=== PATIENT | female | born 1950 | race Caucasian/White ===

== ENCOUNTER → 2016-11-12 | Day surgery (SDC) | payer MEDICARE, OTHER ==
[~2016-11-12] MED LIST: ATOR40TA59 PO; HYDR-2666 PO; HYDROmorphone 2 MG/ML VIAL IV PRN; IV RINGERS,LACTATED 1000ML 1,000 ML IV SCH; LIDOCAINE 1% 1 ML SYRINGE. ID PRN; LIDOCAINE 2% PF Vial for OR 5 ML VIAL. ONE; MELO-150 PO; MORPHINE SULFATE 2 MG/ML DISP.SYRIN. IV PRN; ONDANSETRON PF 4 MG/2 ML VIAL. IV PRN; PROCHLORPERAZINE 10 MG/2 ML VIAL. IV PRN; PROPOFOL 20 ML IV ONE; SITA1TAB11 PO; TELM1TAB3 PO; TELM40TA PO; fentaNYL PF VIAL 100 MCG/2 ML VIAL IV PRN
[2016-11-12 12:32] VITALS: BP 147/80
== END | disposition home or self-care (01) ==
LOC: ENDOS 10:41
PROVIDERS: ATTEND Internal Medicine Gastroenterology
DX: K22.2 Esophageal obstruction (principal); K29.50 Unspecified chronic gastritis without bleeding; E78.00 Pure hypercholesterolemia, unspecified; I10 Essential (primary) hypertension; E11.9 Type 2 diabetes mellitus without complications; F41.9 Anxiety disorder, unspecified; F32.9 Major depressive disorder, single episode, unspecified; Z90.710 Acquired absence of both cervix and uterus
CPT/HCPCS: 43235; 43450; J2704

== ENCOUNTER → 2016-12-03 | Outpatient (CLI) | payer MEDICARE, OTHER ==
[2016-11-12 12:32] VITALS: BP 147/80
[~2016-12-03] MED LIST changes: +BARIUM SULFATE 340 GM SUSPENSION. PO ONE; +BARIUM SULFATE 60% 355 ML SUSP PO ONE; -HYDROmorphone 2 MG/ML VIAL IV PRN; -IV RINGERS,LACTATED 1000ML 1,000 ML IV SCH; -LIDOCAINE 1% 1 ML SYRINGE. ID PRN; -LIDOCAINE 2% PF Vial for OR 5 ML VIAL. ONE; -MORPHINE SULFATE 2 MG/ML DISP.SYRIN. IV PRN; -ONDANSETRON PF 4 MG/2 ML VIAL. IV PRN; -PROCHLORPERAZINE 10 MG/2 ML VIAL. IV PRN; -PROPOFOL 20 ML IV ONE; +SIMETHICONE/SOD BICARB/CITRIC ACID PACKET. PO ONE; -fentaNYL PF VIAL 100 MCG/2 ML VIAL IV PRN
--- NOTE | 2016-12-03 09:47 | RAD ---
Esophagram History: LAP-BAND, dysphagia, feels as if food is getting stuck. Upper endoscopy performed on 3 weeks ago demonstrated mild Schatzki's ring and esophagus was dilated. Comparison: None. Technique: 1 Ostomy Rn radiograph was obtained. 15 fluoroscopic images were obtained. Total fluoroscopic time was 1.6 minutes. Findings: Ostomy Rn film demonstrates presence of a lap band with appropriate orientation. The phi angle is 45 degrees. LAP-BAND tubing appears intact. Initially, small amount of thin barium contrast was administered to the patient. There is appropriate esophageal motility. Contrast material transits easily through the lap band device. The diameter of lumen of LAP-BAND device is estimated at 6 mm. There is no evidence of gastric pouch dilatation. Double contrast esophagram was then performed. Mucosal pattern of the esophagus appears appropriate. No inflammatory changes, polyps, or strictures are identified. Single contrast esophagram was then performed. Esophageal motility is appropriate. No esophageal strictures are identified. Impression: 1. The lap band device is present and has appropriate orientation. 2. Diameter of lumen of the lap band band device is estimated at 6 mm. 3. No esophageal mucosal abnormality is identified.
== END | disposition home or self-care (01) ==
LOC: RAD 08:44
PROVIDERS: ATTEND Internal Medicine Gastroenterology
DX: R13.10 Dysphagia, unspecified (principal)
CPT/HCPCS: 74220

== ENCOUNTER 2017-06-17 09:00 | Emergency (ER) | payer MEDICARE, OTHER ==
[~2017-06-17] VITALS: Ht 157.5 cm; Wt 74.4 kg
[~2017-06-17 09:00] MED LIST changes: -BARIUM SULFATE 340 GM SUSPENSION. PO ONE; -BARIUM SULFATE 60% 355 ML SUSP PO ONE; -HYDR-2666 PO; +HYDR-2758 PO; -MELO-150 PO; +MELO15TA23 PO; -SIMETHICONE/SOD BICARB/CITRIC ACID PACKET. PO ONE
--- NOTE | 2017-06-17 09:25 | PHYS DOC ---
Past Medical History Past Medical History: Diabetes-Type II, High Cholesterol, Hypertension Past Surgical History: Hysterectomy Additional Past Surgical Histo: BLADDER SLING, CYST REMOVAL Alcohol Use: None Drug Use: None Adult General Chief Complaint Chief Complaint: FOOT INJURY PAIN [facility] HPI Patient is a 67 year old female who presents with pain to the left ankle after she was attacked by her rooster last night. She states she was walking to the hen [place] when he attacked and spurred her causing the injury. She has pain to her lateral malleolus with swelling. She states that it hurts to put any weight on that ankle. Review of Systems Review of Systems Constitutional: Denies fever or chills [] Respiratory: Denies cough or shortness of breath [] Cardiovascular: No additional information not addressed in HPI [] Musculoskeletal: See history of present illness Integument: Patient has numerous tiny scratches to bilateral hands and feet that she states are from kittens Neurologic: Denies headache, focal weakness or sensory changes [] Endocrine: Denies polyuria or polydipsia [] All other systems were reviewed and found to be within normal limits, except as documented in this note. Allergies Allergies Allergies Coded Allergies Type Severity Reaction Last Updated Verified No Known Drug Allergies 11/12/16 No Physical Exam Physical Exam Constitutional: Well developed, well nourished, no acute distress, non-toxic appearance. [] Cardiovascular:Heart rate regular rhythm, no murmur [] Lungs & Thorax: Bilateral breath sounds clear to auscultation [] Skin: Warm, dry, no erythema, multiple small scratches to bilateral hands and feet that look to be healing with no evidence of infection[] Back: No tenderness, no CVA tenderness. [] Extremities: tenderness over lateral malleolus, no cyanosis, no clubbing, ROM intact, mild edema, pulses and sensation are intact [] Neurologic: Alert and oriented X 3, normal motor function, normal sensory function, no focal deficits noted. [] Psychologic: Affect normal, judgement normal, mood normal. [] Current Patient Data Vital Signs Vital Signs Date Time Temp Pulse Resp B/P (MAP) Pulse Ox O2 Delivery O2 Flow Rate FiO2 06/17/17 10:20 72 16 124/67 (86) 98 06/17/17 09:06 98.7 Room Air 98.7 EKG EKG [] Radiology/Procedures Radiology/Procedures [] PATIENT: DORI SHINE ACCOUNT: [id number] : 1950 LOCATION: ER AGE: 67 SEX: F EXAM STATUS: REG ER ORD. PHYSICIAN: MARK SANTOS APRN REASON: injured by rooster last night, hurts to bear weight PROCEDURE: ANKLE LEFT 3V Left ankle, 3 views, 06/17/2017: History: Pain, attacked by a rooster There is mild patchy bony demineralization. No fracture or dislocation is identified. There is mild subcutaneous edema. IMPRESSION: No acute bony abnormality is detected. DICTATED and SIGNED BY: DANA MOHAN MD DATE: 06/17/17 0944 CC: FRANCINE MILLER DO; MARK SANTOS APRN ~ Course & Med Decision Making Course & Med Decision Making Pertinent Labs and Imaging studies reviewed. (See chart for details) []1. Ankle contusion Placed in an hill wrap. RICE the extremity for comfort and relief of swelling and pain. May take ibuprofen or Tylenol for pain. Please follow-up with your primary care provider in 3 days if not improving or return to the ED if worsening. Dragon Disclaimer Dragon Disclaimer This electronic medical record was generated, in whole or in part, using a voice recognition dictation system. Departure Departure Referrals: FRANCINE MILLER DO (PCP) MARK SANTOS APRN Jun 17, 2017 09:25
--- NOTE | 2017-06-17 09:48 | RAD ---
Left ankle, 3 views, 06/17/2017: History: Pain, attacked by a rooster There is mild patchy bony demineralization. No fracture or dislocation is identified. There is mild subcutaneous edema. IMPRESSION: No acute bony abnormality is detected.
[2017-06-17 10:20] VITALS: BP 124/67
== END 2017-06-17 10:20 | disposition home or self-care (01) ==
LOC: ER 09:00
DX: S90.02XA Contusion of left ankle, initial encounter (principal); E11.9 Type 2 diabetes mellitus without complications; E78.00 Pure hypercholesterolemia, unspecified; I10 Essential (primary) hypertension; Z90.710 Acquired absence of both cervix and uterus; X58.XXXA Exposure to other specified factors, initial encounter; Y93.01 Activity, walking, marching and hiking; Y92.89 Other specified places as the place of occurrence of the external cause; Y99.8 Other external cause status
CPT/HCPCS: 73610; 99284

== ENCOUNTER → 2017-08-09 | Outpatient (CLI) | payer MEDICARE, OTHER ==
[2017-08-09] MEDS: GADOBUTROL 7.5 MMOL/7.5 ML VIAL IV ×2 (14:32)
== END | disposition home or self-care (01) ==
LOC: KCIC MRI 13:25
DX: H91.90 Unspecified hearing loss, unspecified ear (principal); R42 Dizziness and giddiness
CPT/HCPCS: 70553; A9585

== ENCOUNTER → 2018-11-25 | Day surgery (SDC) | payer MEDICARE, OTHER ==
[~2018-11-25] MED LIST changes: +AMLO5TAB10 PO; +EXEN2VIA SQ; -HYDR-2758 PO; +HYDR-2761 PO; +IV RINGERS,LACTATED 1000ML 1,000 ML IV SCH; +METF500T16 PO; +PROPOFOL 40 ML IV ONE
[2018-11-25 11:02] VITALS: BP 106/56
--- NOTE | 2018-11-25 14:24 | HP ---
ADMIT DATE: 11/25/2018 REFERRING PHYSICIAN: Dr. Osbaldo Hoffman. REASON: Rectal bleeding. HISTORY OF PRESENT ILLNESS: A 68-year-old female whose past medical history is significant for diabetes, GERD, hypertension, hyperlipidemia, as well as colonic polyps, was seen with intermittent rectal bleeding, bright red in nature and blood filling the toilet, it has been intermittent in nature. FOBT was positive as well. Last colonoscopy was over 9 years ago, polyps at that time. With recurrent symptoms and history of polyps, she requests additional evaluation. PAST MEDICAL HISTORY: Anxiety, diabetes, GERD, hypertension, hyperlipidemia, history of polyps, arthritis. ALLERGIES: None. MEDICATIONS: Include amlodipine, atorvastatin, Bydureon, meloxicam, metformin, and Micardis. FAMILY AND SOCIAL HISTORY: She is adopted. She is a social drinker and nonsmoker. PAST SURGICAL HISTORY: Status post hysterectomy, dermoid cysts, weight loss surgery and tonsillectomy. REVIEW OF SYSTEMS: Per records. PHYSICAL EXAMINATION: GENERAL: Reveals a well-nourished, well-developed female who is alert, cooperative, in no acute distress. VITAL SIGNS: Temperature is 97.8, pulse is 67, respirations 18. HEENT: Reveals normocephalic, atraumatic head. Pupils and extraocular muscles are not tested. Sclerae anicteric. NECK: Supple. LUNGS: Clear. CARDIOVASCULAR: Reveals an S1, S2 without S3, S4 or appreciable murmur. ABDOMEN: Reveals soft abdomen, normal bowel sounds without appreciable hepatosplenomegaly. EXTREMITIES: Reveals no cyanosis, clubbing, edema. IMPRESSION: Colorectal screening, with rectal bleeding and a history of polyps, is warranted at this time. Risks and benefits of the procedure have been discussed with the patient who is willing to proceed at this time. JOSSUE LION MD DR: NIKKY/rusty JOB#: [id number] / [id number]
--- NOTE | 2018-11-29 17:06 | PATHOLOGY ---
[facility] Accession Number: [id number] . 01 Material submitted: . colon - SIGMOID POLYP. Modifiers: sigmoid . 01 Clinical history: . Pre-OP DX: Rectal bleed Post-OP DX: Polyp . 02 Diagnosis: Colon biopsy, sigmoid polyp: - Tubular adenoma. . (JPM:mm; 11/29/2018) [facility]/11/29/2018 . 02 Comment: There is no high grade dysplasia or evidence of malignancy. . (JPM:mm; 11/29/2018) . 02 Electronically signed: . Wilman Azul MD, Pathologist NPI- [id number] . 01 Gross description: . Received in formalin labeled "Carmen Patel, sigmoid polyp," is a single segment of aguayo soft tissue measuring 0.4 cm in maximum dimension. The specimen is entirely submitted in cassette A1. (TSD; 11/25/2018) TOB/TOB . 02 Pathologist provided ICD-10: D12.5 . 02 CPT . 834361 Specimen Comment: A courtesy copy of this report has been sent to Specimen Comment: [phone], . Specimen Comment: Report sent to DR MILLER / DR LION Performed at: 01 [facility] [address], [place], [place] [id number] MD Isac Turner MD Phone: [phone] Performed at: 02 [facility] [address] [place], [place] [id number] MD Wilman Azul MD Phone: [phone]
== END ==
LOC: SURG 08:50
PROVIDERS: ATTEND Internal Medicine Gastroenterology
DX: D12.4 Benign neoplasm of descending colon (principal); K64.0 First degree hemorrhoids; E11.9 Type 2 diabetes mellitus without complications; I10 Essential (primary) hypertension; K21.9 Gastro-esophageal reflux disease without esophagitis; E78.5 Hyperlipidemia, unspecified; F41.9 Anxiety disorder, unspecified; Z86.010 Personal history of colon polyps; Z87.39 Personal history of other diseases of the musculoskeletal system and connective tissue; Z90.710 Acquired absence of both cervix and uterus; Z98.890 Other specified postprocedural states; Z79.84 Long term (current) use of oral hypoglycemic drugs
CPT/HCPCS: 45380; 88305; J2704

== ENCOUNTER → 2019-01-10 | Outpatient (CLI) | payer MEDICARE, OTHER ==
[2018-11-25 11:02] VITALS: BP 106/56
[~2019-01-10] MED LIST changes: +AMLO5TAB4 PO; +ATOR40TA PO; +DOCU100C28 PO; -IV RINGERS,LACTATED 1000ML 1,000 ML IV SCH; -PROPOFOL 40 ML IV ONE
--- NOTE | 2019-01-10 21:09 | PAIN ---
DATE OF SERVICE: 01/10/2019 INITIAL CONSULTATION FOR PAIN CLINIC CHIEF COMPLAINT: Low back and left lower extremity pain. HISTORY OF PRESENT ILLNESS: This is a 68-year-old female who presents with history of pain for about 6 months, increasing after she had an injury to her right Achilles tendon. She was wearing a large boot, which was heavy during that time, then developed some significant back pain and radicular pain in the left lower extremity. The patient reports it is in the posterior gluteus, posterior thigh, lateral thigh, lateral anterior thigh and anterior medial thigh to the level of the ankle. She is doing much better since she got the boot off of her foot about 3-4 weeks ago and she is doing some chiropractic treatment as well as some physical therapy, which is helping fairly significantly. The patient reports it is about 50% better since the boot came off of her foot with her back and left leg. The patient reports she tried Neurontin, but it was intolerable with side effects, otherwise has had no other medication managements at this time. Again, chiropractic has helped to a point, but still pain in the left lower extremity as described. The patient describes it as radiating, cramping and aching in the back as well. The patient rates her disability rate from 0-10, 10 being the worst, is an 8 with family and home responsibilities, recreation and social activities, 7 with occupation and self-care and 5 with life support activities. The patient reports it awakens her from sleep at night at least once or twice. It does not affect her bowel or bladder control and does affect her ability to walk fairly significantly. She is not using assistive devices, however. The patient had an MRI scan of the lumbar spine showing lumbar spondylosis with mild degenerative subluxations at L3-L4 and L4-L5 with small disk extrusion in the left lateral recess from L4-L5 extending along the left posterior aspect of L4 causing mild thecal sac deformity. The patient reports significant fatigability in the left leg compared to the right, but she has been taking her activities very, very cautiously and very slowly. She does live on and manage a farm, and she has been decreasing her activity significantly, which has helped as well. PAST MEDICAL HISTORY: Significant for hypertension, type 2 diabetes, hearing loss, eyeglasses, arthritis. PREVIOUS SURGERIES: Include laparoscopic banding, hysterectomy and bladder surgery 25 years ago, dermoid cyst excision and a tonsillectomy in the past. CURRENT MEDICATIONS: Include Lipitor, Norvasc, metformin, docusate, Micardis, Bydureon and meloxicam. ALLERGIES: THE PATIENT IS ALLERGIC TO PENICILLIN. FAMILY HISTORY: Significant for no known conditions or diseases as she was adopted. SOCIAL HISTORY: The patient does not drink alcohol, does not smoke, does not use any illegal, illicit or recreational drugs. She is , lives locally on a farm and otherwise, manages the farm, is otherwise retired. REVIEW OF SYSTEMS: The patient's review of systems is positive for those items mentioned in history of present illness. All systems reviewed and otherwise negative. It is complete, full and well documented on the patient's chart. PHYSICAL EXAMINATION: VITAL SIGNS: The patient's blood pressure is 117/47, pulse 80, respirations 18, temperature is 98.6 degrees Fahrenheit. Height is 5 feet 2 inches, weight is 148 pounds. GENERAL: She is awake, alert, oriented, appropriate, very pleasant demeanor. HEENT: Head shows normocephalic, atraumatic. Extraocular movements are intact and symmetrical. Oral cavity: Mucous membranes moist and pink. Dentition is intact. NECK: Shows anterior throat supple without palpable lymphadenopathy noted. Swallow reflex is symmetrical. CHEST: Shows normal on inspection. Breath sounds clear to auscultation bilaterally. HEART: Shows S1, S2 clear. No murmurs auscultated. ABDOMEN: Soft, nontender, nondistended. No palpable organomegaly is noted. No rebound or guarding demonstrated. BACK: Shows spine grossly in the midline. Normal appearing thoracic kyphosis and lumbar lordotic curvature. Lumbar paraspinous muscle shows symmetrical on inspection, on palpation shows some moderate tenderness diffusely bilaterally, but only diffusely without radiation. The patient has good rotational motion of lumbar spine both laterally as well as extension and flexion without significant difficulty. The patient's spinous process shows midline without tenderness over the spinous processes. No tenderness over the sacrum or sacroiliac regions. The patient has good rotational motion of lumbar spine both laterally greater than 10 degrees right and left as well as extension greater than 10 degrees, forward flexion 45 degrees without significant pain reported. EXTREMITIES: Lower extremities show deep tendon reflexes at 2+ in the patellar, 1+ in tendo-calcaneus tendons. Motor exam is approximately 4 on a scale 5 on the left with dorsiflexion, extension, quadriceps and hamstring flexion and 5/5 on the right. Lower extremities are warm and dry to touch, equal in color and appearance. Peripheral pulses are 1+ posterior tibial. No peripheral edema is noted bilaterally. Straight leg raise is noted to be negative for reproduction of radicular symptoms bilaterally. Gaenslen's and Presley's maneuvers are negative as well bilaterally. The patient's skin shows warm and dry, good turgor. No edema. No sores, rashes or bruising. The patient is able to stand, stand on her toes without difficulty or loss of balance, walks with a normal appearing gait, does not use any assistive devices to ambulate. IMPRESSION: 1. This is a 68-year-old female with approximately 6-month history of increasing pain in low back, left lower extremity in a radicular fashion as noted, improving, however, with some conservative measures. 2. MRI scan of lumbar spine as noted. 3. Hypertension. 4. Type 2 diabetes. PLAN: Options were discussed with the patient including conservative medical management, physical therapy and interventional techniques. She would like to pursue most conservative measures at this time. We will try a Medrol Dosepak. The patient was given instructions as well as side effects to be aware of, especially to watch her blood sugar levels while taking this. If it is not significantly improved, we did discuss possible interventional technique with a lumbar epidural steroid injection. She will try the Medrol Dosepak first to see how this does. If not significantly improved, we will have her return and plan on lumbar epidural steroid injection at that time. TERRANCE JEAN BAPTISTE MD DR: DOUGLAS/rusty JOB#: [id number] / [id number] FRANCINE Staples DO
== END | disposition home or self-care (01) ==
LOC: PNCL 12:43
PROVIDERS: ATTEND Anesthesiology
DX: M54.5 Low back pain (principal); M79.605 Pain in left leg; I10 Essential (primary) hypertension; E11.9 Type 2 diabetes mellitus without complications; H91.90 Unspecified hearing loss, unspecified ear; M19.90 Unspecified osteoarthritis, unspecified site; Z90.710 Acquired absence of both cervix and uterus; Z98.890 Other specified postprocedural states; Z88.0 Allergy status to penicillin
CPT/HCPCS: G0463